=== PATIENT | female | born 1990 | race Caucasian/White ===

== ENCOUNTER 2021-04-25 17:42 | Emergency (ER) | payer SELFPAY ==
[2021-04-25 18:36] VITALS: BP 102/71; PULSE 87
[2021-04-25] MEDS ORDERED: Sulfamethoxazole/Trimethoprim 800-160 MG Tab PO ONE (18:45)
[2021-04-25] MEDS ORDERED: Lidocaine 1% 10 ML MDV INJECT ONE (19:05)
[2021-04-25] MEDS: Lidocaine 1% 5 ML VIAL ONE ×2 (19:08→19:11)
== END 2021-04-25 19:11 | disposition home or self-care (01) ==
LOC: MW.ED 17:42
DX: S31.010A Laceration without foreign body of lower back and pelvis without penetration into retroperitoneum, initial encounter (principal); Z88.0 Allergy status to penicillin; W25.XXXA Contact with sharp glass, initial encounter
CPT/HCPCS: 12001; 99282; A9270

== ENCOUNTER 2021-09-29 16:51 | Emergency (ER) | payer SELFPAY ==
[2021-09-29 20:06] VITALS: BP 95/64; PULSE 77
== END 2021-09-29 19:13 | disposition home or self-care (01) ==
LOC: MW.ED 16:51
DX: U07.1 COVID-19 (principal); N39.0 Urinary tract infection, site not specified; Z79.899 Other long term (current) drug therapy; Z88.0 Allergy status to penicillin
CPT/HCPCS: 81001; 81025; 87086; 99283; U0002

== ENCOUNTER 2022-02-21 11:11 | Emergency (ER) | payer SELFPAY ==
[2022-02-21 12:07] VITALS: BP 102/68; PULSE 81
[2022-02-21 12:31] LABS: ACETAMINOPHEN <2.0 ug/mL; BLOOD UREA NITROGEN,BUN 12 mg/dL (7.0-18.0); CARBON DIOXIDE,CO2 26.6 mmol/L (21.0-32.0); CHLORIDE,CL 102 mmol/L (98-107); GLUCOSE RANDOM 95 mg/dL (74-106); POTASSIUM,K 3.6 mmol/L (3.5-5.1); SODIUM,NA 140 mmol/L (136-145)
[2022-02-21 12:35] LABS: CORONAVIRUS COVID-19 NAA NEGATIVE (NEGATIVE); INFLUENZA A NAA NEGATIVE (NEGATIVE); INFLUENZA B NAA NEGATIVE (NEGATIVE)
[2022-02-21 12:47] LABS: ESTIMATED GFR 119 mL/min (>60)
== END 2022-02-21 12:30 ==
LOC: MW.ED 11:11
DX: R45.851 Suicidal ideations (principal); Z88.0 Allergy status to penicillin; Z20.822 Contact with and (suspected) exposure to COVID-19
CPT/HCPCS: 0240U; 36415; 80053; 80143; 80179; 80305; 80307; 81001; 81025; 84439; 84443; 84481; 85025; 99285

== ENCOUNTER 2022-02-22 12:00 | Emergency (ER) | payer SELFPAY ==
[2022-02-22 14:41] VITALS: BP 129/75; PULSE 93
== END 2022-02-22 14:40 ==
LOC: MW.ED 12:00
DX: Z00.8 Encounter for other general examination (principal); Z88.0 Allergy status to penicillin
CPT/HCPCS: 99285

== ENCOUNTER 2024-03-23 17:34 | Emergency (ER) | payer SELFPAY ==
[2024-03-23] MEDS: Acetaminophen 500 MG Tab PO ONE (19:34)
[2024-03-23] MEDS: Ondansetron 4 MG Tab.DIS PO ONE (19:34)
[2024-03-23] MEDS ORDERED: Oseltamivir 75 MG Cap PO ONE (20:19)
[2024-03-23 21:42] VITALS: BP 91/46; PULSE 104
== END 2024-03-23 21:42 | disposition home or self-care (01) ==
LOC: MW.ED 17:34
DX: J10.1 Influenza due to other identified influenza virus with other respiratory manifestations (principal); F17.210 Nicotine dependence, cigarettes, uncomplicated; Z88.0 Allergy status to penicillin; Z79.899 Other long term (current) drug therapy; Z75.8 Other problems related to medical facilities and other health care
CPT/HCPCS: 87428; 99284; A9270

== ENCOUNTER 2024-09-21 09:42 | Emergency (ER) | payer SELFPAY ==
[2024-09-21 11:06] VITALS: BP 100/69; PULSE 73
== END 2024-09-21 11:06 ==
LOC: MW.ED 09:42
DX: S20.222A Contusion of left back wall of thorax, initial encounter (principal); Z79.899 Other long term (current) drug therapy; Z88.0 Allergy status to penicillin; Y04.8XXA Assault by other bodily force, initial encounter
CPT/HCPCS: 99282; 99283